=== PATIENT | female | born 1960 | race Caucasian/White ===

== ENCOUNTER 2017-01-20 08:04 | Emergency (ER) | payer BC ==
--- NOTE | 2017-01-20 08:51 | ED ---
General Adult HPI - General Chief complaint: Dental/Oral Stated complaint: DENTAL PAIN AND SWELLING Time Seen by Provider: 01/20/17 08:10 Source: patient, RN notes reviewed Mode of arrival: ambulatory Limitations: no limitations - History of Present Illness Initial comments: Patient 56-year-old female who presents emergency room today with chief complaint of increased dental pain over the last 3 days. Patient does admit to some discomfort to tooth #31. Denies any drainage or discharge. Does admit some increased sensitivity. States that she has not taken anything for the pain. She denies any other complaints or associated symptoms. Patient denies any recent fever, chills, shortness of breath, chest pain, back pain, abdominal pain, nausea or vomiting, numbness or tingling, dysuria or hematuria, constipation or diarrhea, headaches or visual changes, or any other complaints. - Related Data Home Medications Medication Instructions Recorded Confirmed Aspirin 81 mg PO DAILY 09/20/13 04/21/15 Hydrochlorothiazide [Hydrodiuril] 12.5 mg PO DAILY 09/20/13 04/21/15 Lisinopril [Zestril] 20 mg PO BID 09/20/13 04/21/15 metFORMIN HCL [Glucophage] 1,000 mg PO BID 09/20/13 04/21/15 Vitamin B Complex 1 each PO DAILY 04/10/14 04/21/15 Omeprazole [PriLOSEC] 20 mg PO AC-BRKFST 04/13/15 04/21/15 Previous Rx's Medication Instructions Recorded Ibuprofen [Motrin] 600 mg PO Q6HR PRN #30 day 01/20/17 Penicillin V Potassium [Pen Vee K] 500 mg PO QID 10 Days 01/20/17 Allergies Allergy/AdvReac Type Severity Reaction Status Date / Time No Known Allergies Allergy Verified 01/20/17 08:09 Review of Systems ROS Statement: Those systems with pertinent positive or pertinent negative responses have been documented in the HPI. ROS Other: All systems not noted in ROS Statement are negative. Past Medical History Past Medical History: Diabetes Mellitus, GERD/Reflux, Hypertension Additional Past Medical History / Comment(s): torin Ravi, HX OF FOOD "GETTING STUCK" History of Any Multi-Drug Resistant Organisms: None Reported Additional Past Surgical History / Comment(s): D&C, colonoscopy, EGD Past Anesthesia/Blood Transfusion Reactions: No Reported Reaction Past Psychological History: No Psychological Hx Reported Smoking Status: Never smoker Past Alcohol Use History: None Reported Past Drug Use History: None Reported - Past Family History Father Family Medical History: Cancer, Deep Vein Thrombosis (DVT) Additional Family Medical History / Comment(s): COLON General Exam - General Exam Comments Initial Comments: General: The patient is awake and alert, in no distress, and does not appear acutely ill. Eye: Pupils are equal, round and reactive to light, extra-ocular movements are intact. No nystagmus. There is normal conjunctiva bilaterally. No signs of icterus. Ears, nose, mouth and throat: There are moist mucous membranes and no oral lesions. Tender on palpation over tooth #31. No sign of abscess. Uvula midline. Patient swallows without any difficulty. Neck: The neck is supple, there is no tenderness or JVD. Cardiovascular: There is a regular rate and rhythm. No murmur, rub or gallop is appreciated. Respiratory: Lungs are clear to auscultation, respirations are non-labored, breath sounds are equal. No wheezes, stridor, rales, or rhonchi. Musculoskeletal: Normal ROM, no tenderness. Strength 5/5. Sensation intact. Pulses equal bilaterally 2+. Neurological: A&O x 3. CN II-XII intact, There are no obvious motor or sensory deficits. Coordination appears grossly intact. Speech is normal. Skin: Skin is warm and dry and no rashes or lesions are noted. Psychiatric: Cooperative, appropriate mood & affect, normal judgment. Limitations: no limitations Course Vital Signs 01/20/17 08:06 Temperature 97.0 F L Pulse Rate 90 Respiratory 116 H Rate Blood Pressure 136/72 O2 Sat by Pulse 99 Oximetry Medical Decision Making - Medical Decision Making Patient will be started on some cover for infection along with anti- inflammatories for pain. Advised following up with a dentist over the next 2-5 days. Advised return here to the emergency room if any symptoms increase or worsen or for any other concerns. Disposition Clinical Impression: Dental implant pain Disposition: HOME SELF-CARE Condition: Good Instructions: Toothache (ED) Additional Instructions: Please use medication as discussed. Please follow-up with dentist/family doctor in the next 2 days of symptoms have not improved. Please return to emergency room if the symptoms increase or worsen or for any other concerns. Prescriptions: Ibuprofen [Motrin] 600 mg PO Q6HR PRN #30 day PRN Reason: Pain Penicillin V Potassium [Pen Vee K] 500 mg PO QID 10 Days Referrals: Ron Vieira DO [Primary Care Provider] - 1-2 days Time of Disposition: 08:50
[2017-01-20 08:59] VITALS: BP 135/75; PULSE 88; RESP 16; TEMP 97.8
== END 2017-01-20 09:04 | disposition home or self-care (01) ==
LOC: EC 08:04
DX: K08.89 Other specified disorders of teeth and supporting structures (principal); E11.9 Type 2 diabetes mellitus without complications; K21.9 Gastro-esophageal reflux disease without esophagitis; I10 Essential (primary) hypertension; Z79.82 Long term (current) use of aspirin; Z79.84 Long term (current) use of oral hypoglycemic drugs; Z79.899 Other long term (current) drug therapy
CPT/HCPCS: 99282

== ENCOUNTER 2020-07-15 22:07 | Emergency (ER) | payer BC ==
[2020-07-15 22:13] VITALS: BP 172/74; PULSE 85; RESP 18; TEMP 97.9
[2020-07-15] MEDS ORDERED: dexAMETHasone 4 MG TAB PO STA (22:52)
[2020-07-15] MEDS ORDERED: FAMOTIDINE 20 MG TAB PO STA (22:52)
[2020-07-15] MEDS ORDERED: diphenhydrAMINE 50 MG CAP PO STA (22:52)
--- NOTE | 2020-07-15 23:21 | ED ---
Allergic Reaction HPI - General Chief complaint: Allergic Reaction Stated complaint: Possible Allergic Reaction Time Seen by Provider: 07/15/20 22:27 Source: patient, RN notes reviewed, old records reviewed Mode of arrival: ambulatory Limitations: no limitations - History of Present Illness Initial Comments: This is a 51-year-old female DF for evaluation. Patient Dese for facial swelling. Began while after dinner and is never resolved. Patient denies any swelling or shortness of breath. Patient does admit to taking lisinopril. No prior history of similar reaction MD Complaint: allergic reaction, other (Medication reaction lisinopril likely) -: minutes(s) Exposure: unknown Symptoms: orolingual swelling (Left lip) Severity: moderate Treatment Prior to Arrival: none Previous Allergy History: none - Related Data Home Medications Medication Instructions Recorded Confirmed Aspirin 81 mg PO DAILY 09/20/13 04/21/15 hydroCHLOROthiazide [Hydrodiuril] 12.5 mg PO DAILY 09/20/13 04/21/15 lisinopriL [Zestril] 20 mg PO BID 09/20/13 04/21/15 metFORMIN HCL [Glucophage] 1,000 mg PO BID 09/20/13 04/21/15 Vitamin B Complex 1 each PO DAILY 04/10/14 04/21/15 Omeprazole [PriLOSEC] 20 mg PO AC-BRKFST 04/13/15 04/21/15 Previous Rx's Medication Instructions Recorded Ibuprofen [Motrin] 600 mg PO Q6HR PRN #30 day 01/20/17 Penicillin V Potassium [Pen Vee K] 500 mg PO QID 10 Days day 01/20/17 Famotidine [Pepcid] 20 mg PO BID #28 tablet 07/15/20 diphenhydrAMINE [Benadryl] 50 mg PO QID PRN #20 capsule 07/15/20 predniSONE 50 mg PO DAILY #5 tab 07/15/20 Allergies Allergy/AdvReac Type Severity Reaction Status Date / Time No Known Allergies Allergy Verified 07/15/20 22:13 Review of Systems ROS Statement: Those systems with pertinent positive or pertinent negative responses have been documented in the HPI. ROS Other: All systems not noted in ROS Statement are negative. Past Medical History Past Medical History: Diabetes Mellitus, GERD/Reflux, Hypertension Additional Past Medical History / Comment(s): torin Ravi, HX OF FOOD "GETTING STUCK" History of Any Multi-Drug Resistant Organisms: None Reported Additional Past Surgical History / Comment(s): D&C, colonoscopy, EGD Past Anesthesia/Blood Transfusion Reactions: No Reported Reaction Past Psychological History: No Psychological Hx Reported Smoking Status: Never smoker Past Alcohol Use History: None Reported Past Drug Use History: None Reported - Past Family History Father Family Medical History: Cancer, Deep Vein Thrombosis (DVT) Additional Family Medical History / Comment(s): COLON General Exam Limitations: no limitations General appearance: alert, in no apparent distress Head exam: Present: atraumatic, normocephalic, normal inspection Eye exam: Present: normal appearance, PERRL, EOMI, other (Left lip swollen, no oral swelling no stridor). Absent: scleral icterus, conjunctival injection, periorbital swelling ENT exam: Present: normal exam, mucous membranes moist Neck exam: Present: normal inspection. Absent: tenderness, meningismus, lymphadenopathy Respiratory exam: Present: normal lung sounds bilaterally. Absent: respiratory distress, wheezes, rales, rhonchi, stridor Cardiovascular Exam: Present: regular rate, normal rhythm, normal heart sounds. Absent: systolic murmur, diastolic murmur, rubs, gallop, clicks GI/Abdominal exam: Present: soft, normal bowel sounds. Absent: distended, tenderness, guarding, rebound, rigid Extremities exam: Present: normal inspection, full ROM, normal capillary refill. Absent: tenderness, pedal edema, joint swelling, calf tenderness Back exam: Present: normal inspection Neurological exam: Present: alert, oriented X3, CN II-XII intact Psychiatric exam: Present: normal affect, normal mood Skin exam: Present: warm, dry, intact, normal color. Absent: rash Course Vital Signs 07/15/20 22:09 Temperature 97.9 F Pulse Rate 85 Respiratory 18 Rate Blood Pressure 172/74 O2 Sat by Pulse 98 Oximetry - Reevaluation(s) Reevaluation #1: Medical record is reviewed Patient has improved symptoms here in the ER Patient feels better Patient family informed results questions are answered Patient feels good for discharge Medical Decision Making - Medical Decision Making 51 female on lisinopril lip swelling, unilateral lip swelling, the symptoms are not exacerbated here in the ER she did watch, patient can be discharged home Disposition Clinical Impression: Angioedema, Allergic reaction Disposition: HOME SELF-CARE Condition: Good Instructions (If sedation given, give patient instructions): Angioedema (ED) Additional Instructions: cancel Lisinoprill Prescriptions: diphenhydrAMINE [Benadryl] 50 mg PO QID PRN #20 capsule PRN Reason: itching/rash Famotidine [Pepcid] 20 mg PO BID #28 tablet predniSONE 50 mg PO DAILY #5 tab Is patient prescribed a controlled substance at d/c from ED?: No Referrals: Ron Vieira DO [Primary Care Provider] - 1-2 days
== END 2020-07-15 23:55 | disposition home or self-care (01) ==
LOC: EC 22:07
DX: T78.3XXA Angioneurotic edema, initial encounter (principal); E11.9 Type 2 diabetes mellitus without complications; I10 Essential (primary) hypertension; K21.9 Gastro-esophageal reflux disease without esophagitis; Z79.899 Other long term (current) drug therapy; Z79.82 Long term (current) use of aspirin; Z79.84 Long term (current) use of oral hypoglycemic drugs
CPT/HCPCS: 99283; J8540

== ENCOUNTER 2020-10-13 18:49 | Emergency (ER) | payer BC ==
[2020-10-13] MEDS ORDERED: diphenhydrAMINE 50 MG/ML 1 ML VIAL IVP STA (19:47)
[2020-10-13] MEDS ORDERED: FAMOTIDINE 20 MG/2 ML VIAL IV STA (19:47)
[2020-10-13] MEDS ORDERED: methylPREDNISolone SOD SUCCI 125 MG/2 ML VIAL IV STA (19:48)
--- NOTE | 2020-10-13 20:46 | ED ---
General Adult HPI - General Chief complaint: Dental/Oral Stated complaint: Lip/throat swelling/blockage? Time Seen by Provider: 10/13/20 19:28 Source: patient Mode of arrival: ambulatory Limitations: no limitations - History of Present Illness Initial comments: 59-year-old female patient presents to the emergency department today for evaluation of lip swelling. States that couple hours ago she started having swelling to the left lower lip. States she also feels like there is a lump in her which makes it difficult to swallow. She denies any rash or itching. Denies any difficulty breathing. States she did have similar symptoms a little over a month ago and was taken off her lisinopril. She denies any new exposures. Denies any insect bite or sting. Patient denies any recent rash, fever, chills, cough, chest pain, abdominal pain, nausea, vomiting, diarrhea, constipation, back pain, numbness, tingling, dizziness, weakness, hematuria, dysuria, urinary urgency, urinary frequency, headache, visual changes, or any other complaints. - Related Data Home Medications Medication Instructions Recorded Confirmed Aspirin 81 mg PO DAILY 09/20/13 04/21/15 hydroCHLOROthiazide [Hydrodiuril] 12.5 mg PO DAILY 09/20/13 04/21/15 lisinopriL [Zestril] 20 mg PO BID 09/20/13 04/21/15 metFORMIN HCL [Glucophage] 1,000 mg PO BID 09/20/13 04/21/15 Vitamin B Complex 1 each PO DAILY 04/10/14 04/21/15 Omeprazole [PriLOSEC] 20 mg PO AC-BRKFST 04/13/15 04/21/15 Previous Rx's Medication Instructions Recorded Ibuprofen [Motrin] 600 mg PO Q6HR PRN #30 day 01/20/17 Penicillin V Potassium [Pen Vee K] 500 mg PO QID 10 Days day 01/20/17 Famotidine [Pepcid] 20 mg PO BID #28 tablet 07/15/20 diphenhydrAMINE [Benadryl] 50 mg PO QID PRN #20 capsule 07/15/20 predniSONE 50 mg PO DAILY #5 tab 07/15/20 Famotidine [Pepcid] 20 mg PO DAILY #3 tablet 10/13/20 predniSONE 50 mg PO DAILY #3 tab 10/13/20 Allergies Allergy/AdvReac Type Severity Reaction Status Date / Time lisinopril Allergy Swelling Verified 10/13/20 18:57 Review of Systems ROS Statement: Those systems with pertinent positive or pertinent negative responses have been documented in the HPI. ROS Other: All systems not noted in ROS Statement are negative. Past Medical History Past Medical History: Diabetes Mellitus, GERD/Reflux, Hypertension Additional Past Medical History / Comment(s): torin Ravi, HX OF FOOD "GETTING STUCK" History of Any Multi-Drug Resistant Organisms: None Reported Additional Past Surgical History / Comment(s): D&C, colonoscopy, EGD Past Anesthesia/Blood Transfusion Reactions: No Reported Reaction Past Psychological History: No Psychological Hx Reported Smoking Status: Never smoker Past Alcohol Use History: None Reported Past Drug Use History: None Reported - Past Family History Father Family Medical History: Cancer, Deep Vein Thrombosis (DVT) Additional Family Medical History / Comment(s): COLON General Exam Limitations: no limitations General appearance: alert, in no apparent distress, other (Physical well- developed, well-nourished adult female patient in no acute distress. Vital signs upon presentation temperature 98.4F, pulse 79, respirations 18, blood pressure 146/70, pulse ox 98% on room air.) Respiratory exam: Present: normal lung sounds bilaterally. Absent: respiratory distress, wheezes, rales, rhonchi, stridor Cardiovascular Exam: Present: regular rate, normal rhythm, normal heart sounds. Absent: systolic murmur, diastolic murmur, rubs, gallop, clicks GI/Abdominal exam: Present: soft, normal bowel sounds. Absent: distended, tenderness, guarding, rebound, rigid Neurological exam: Present: alert, oriented X3, CN II-XII intact Psychiatric exam: Present: normal affect, normal mood Skin exam: Present: warm, dry, intact, normal color. Absent: rash Course Vital Signs 10/13/20 10/13/20 18:57 21:28 Temperature 98.4 F 98.0 F Pulse Rate 79 69 Respiratory 18 16 Rate Blood Pressure 146/70 121/65 O2 Sat by Pulse 98 98 Oximetry Medical Decision Making - Medical Decision Making 59-year-old female patient presents to the emergency department today for evaluation of left lower lip swelling and feeling of a lump in her throat. Physical examination did reveal some left lower lip swelling. No tongue or throat swelling on exam. No lymphadenopathy. We did start an IV, she was given Pepcid, site Medrol, Benadryl. Upon reevaluation she is resting comfortably states her symptoms are improved. She is tolerating oral intake. Having no difficulty breathing. We will discharge her 3 deeper structure for Pepcid and prednisone. She is instructed to follow-up the primary care physician for recheck in 1-2 days. Return parameters were discussed in detail. She verbalizes understanding and agrees with this plan. My attending is Dr. Archibald. Disposition Clinical Impression: Facial swelling Disposition: HOME SELF-CARE Condition: Good Instructions (If sedation given, give patient instructions): Angioedema (ED) Additional Instructions: Take medications as directed. Follow-up through primary care physician for recheck in 1-2 days. Return for any new, worsening, or concerning symptoms. Prescriptions: Famotidine [Pepcid] 20 mg PO DAILY #3 tablet predniSONE 50 mg PO DAILY #3 tab Is patient prescribed a controlled substance at d/c from ED?: No Referrals: Ron Vieira DO [Primary Care Provider] - 1-2 days Time of Disposition: 21:17
[2020-10-13 21:30] VITALS: BP 121/65; PULSE 69; RESP 16; TEMP 98
== END 2020-10-13 21:30 | disposition home or self-care (01) ==
LOC: EC 18:49
DX: R22.0 Localized swelling, mass and lump, head (principal); E11.9 Type 2 diabetes mellitus without complications; K21.9 Gastro-esophageal reflux disease without esophagitis; I10 Essential (primary) hypertension; Z79.84 Long term (current) use of oral hypoglycemic drugs
CPT/HCPCS: 99282; 96374; 96375 ×2; J1200; J2930

== ENCOUNTER 2021-07-30 07:33 | Emergency (ER) | payer BC ==
[2021-07-30 07:41] VITALS: RESP 18; TEMP 98.1
[2021-07-30] MEDS ORDERED: SODIUM CHLORIDE 0.9% 1,000 ML IV STA (08:06)
[2021-07-30] MEDS ORDERED: ONDANSETRON 4 MG/2 ML VIAL IVP STA (08:06)
--- NOTE | 2021-07-30 08:10 | ED ---
Nausea/Vomiting/Diarrhea HPI - General Chief complaint: Nausea/Vomiting/Diarrhea Stated complaint: NVD Time Seen by Provider: 07/30/21 07:43 Source: patient Mode of arrival: ambulatory Limitations: no limitations - History of Present Illness Initial comments: 60 year-old female patient presents to the emergency department for evaluation for vomiting and diarrhea. Patient states symptoms started yesterday afternoon and persisted throughout the night. She developed watery diarrhea this morning. Denies fever or chills. Denies any hematochezia or melena. Denies abdominal pain. Reports an odd tingling/pressure in her right lower abdomen. Denies any previous abdominal surgeries. Denies sick contacts or recent travel. Patient denies any recent rash, cough, shortness of breath, chest pain, back pain, numbness, tingling, dizziness, weakness, hematuria, dysuria, urinary urgency, urinary frequency, headache, visual changes, or any other complaints. - Related Data Home Medications Medication Instructions Recorded Confirmed Aspirin 81 mg PO DAILY 09/20/13 04/21/15 hydroCHLOROthiazide [Hydrodiuril] 12.5 mg PO DAILY 09/20/13 04/21/15 lisinopriL [Zestril] 20 mg PO BID 09/20/13 04/21/15 metFORMIN HCL [Glucophage] 1,000 mg PO BID 09/20/13 04/21/15 Vitamin B Complex 1 each PO DAILY 04/10/14 04/21/15 Omeprazole [PriLOSEC] 20 mg PO AC-BRKFST 04/13/15 04/21/15 Previous Rx's Medication Instructions Recorded Ibuprofen [Motrin] 600 mg PO Q6HR PRN #30 day 01/20/17 Penicillin V Potassium [Pen Vee K] 500 mg PO QID 10 Days day 01/20/17 Famotidine [Pepcid] 20 mg PO BID #28 tablet 07/15/20 diphenhydrAMINE [Benadryl] 50 mg PO QID PRN #20 capsule 07/15/20 predniSONE 50 mg PO DAILY #5 tab 07/15/20 Famotidine [Pepcid] 20 mg PO DAILY #3 tablet 10/13/20 predniSONE 50 mg PO DAILY #3 tab 10/13/20 Dicyclomine [Bentyl] 20 mg PO QID #12 tablet 03/12/22 Ondansetron [Zofran ODT] 4 mg PO Q8HR PRN #10 tab 07/30/21 Allergies Allergy/AdvReac Type Severity Reaction Status Date / Time lisinopril Allergy Swelling Verified 07/30/21 07:41 Review of Systems ROS Statement: Those systems with pertinent positive or pertinent negative responses have been documented in the HPI. ROS Other: All systems not noted in ROS Statement are negative. Past Medical History Past Medical History: Diabetes Mellitus, GERD/Reflux, Hypertension Additional Past Medical History / Comment(s): torin Ravi, HX OF FOOD "GETTING STUCK" History of Any Multi-Drug Resistant Organisms: None Reported Additional Past Surgical History / Comment(s): D&C, colonoscopy, EGD Past Anesthesia/Blood Transfusion Reactions: No Reported Reaction Past Psychological History: No Psychological Hx Reported Smoking Status: Never smoker Past Alcohol Use History: None Reported Past Drug Use History: None Reported - Past Family History Father Family Medical History: Cancer, Deep Vein Thrombosis (DVT) Additional Family Medical History / Comment(s): COLON General Exam Limitations: no limitations General appearance: alert, in no apparent distress, other (This is a well- developed, well-nourished adult female in no acute distress.) ENT exam: Present: normal exam, normal oropharynx, mucous membranes moist Respiratory exam: Present: normal lung sounds bilaterally. Absent: respiratory distress, wheezes, rales, rhonchi, stridor Cardiovascular Exam: Present: normal rhythm, tachycardia, normal heart sounds. Absent: systolic murmur, diastolic murmur, rubs, gallop, clicks GI/Abdominal exam: Present: soft, normal bowel sounds. Absent: distended, tenderness, guarding, rebound, rigid Neurological exam: Present: alert, oriented X3, CN II-XII intact Psychiatric exam: Present: normal affect, normal mood Skin exam: Present: warm, dry, intact, normal color. Absent: rash Course Vital Signs 07/30/21 07:39 Temperature 98.1 F Pulse Rate 110 H Respiratory 18 Rate Blood Pressure 130/69 O2 Sat by Pulse 97 Oximetry Medical Decision Making - Medical Decision Making 60-year-old female patient presented for evaluation of vomiting and diarrhea since last night. Physical examination revealed soft nontender abdomen. IV was inserted, and she was given Zofran and normal saline. Labs were obtained and revealed evidence for dehydration. Mildly elevated liver enzymes. Upon reevaluation she is resting comfortably in bed tolerating water. No further episodes of vomiting here. States she is feeling better. She will be discharge d home with prescription for Bentyl and Zofran. She is instructed to start with clear liquid diet and advance as tolerated. She is instructed to follow-up with primary care to have her liver enzymes rechecked. Return parameters were discussed in detail. She verbalizes understanding and agrees with this plan. My attending is Dr. Ireland. - Lab Data Result diagrams: 07/30/21 09:00 07/30/21 09:00 Lab Results 07/30/21 07/30/21 07/30/21 Range/Units 09:00 09:00 09:04 WBC 8.5 (3.8-10.6) k/uL RBC 5.93 H (3.80-5.40) m/uL Hgb 16.0 (11.4-16.0) gm/dL Hct 48.7 H (34.0-46.0) % MCV 82.1 (80.0-100.0) fL MCH 27.0 (25.0-35.0) pg MCHC 32.9 (31.0-37.0) g/dL RDW 13.9 (11.5-15.5) % Plt Count 384 (150-450) k/uL MPV 7.1 Neutrophils % 89 % Lymphocytes % 7 % Monocytes % 2 % Eosinophils % 2 % Basophils % 0 % Neutrophils # 7.6 (1.3-7.7) k/uL Lymphocytes # 0.6 L (1.0-4.8) k/uL Monocytes # 0.2 (0-1.0) k/uL Eosinophils # 0.1 (0-0.7) k/uL Basophils # 0.0 (0-0.2) k/uL Sodium 135 L (137-145) mmol/L Potassium 4.0 (3.5-5.1) mmol/L Chloride 102 (98-107) mmol/L Carbon Dioxide 19 L (22-30) mmol/L Anion Gap 14 mmol/L BUN 21 H (7-17) mg/dL Creatinine 0.58 (0.52-1.04) mg/dL Est GFR (CKD-EPI)AfAm >90 (>60 ml/min/1.73 sqM) Est GFR (CKD-EPI)NonAf >90 (>60 ml/min/1.73 sqM) Glucose 150 H (74-99) mg/dL Calcium 9.8 (8.4-10.2) mg/dL Magnesium 2.0 (1.6-2.3) mg/dL Total Bilirubin 1.0 (0.2-1.3) mg/dL AST 95 H (14-36) U/L ALT 67 H (4-34) U/L Alkaline Phosphatase 74 (38-126) U/L Total Protein 8.8 H (6.3-8.2) g/dL Albumin 5.1 H (3.5-5.0) g/dL Lipase 200 (23-300) U/L Coronavirus (PCR) Not Detected (Not Detectd) Disposition Clinical Impression: Vomiting and diarrhea Disposition: HOME SELF-CARE Condition: Good Instructions (If sedation given, give patient instructions): Acute Nausea and Vomiting (ED), Acute Diarrhea (ED) Additional Instructions: That with clear liquid diet and advance as tolerated. Take medications as directed for symptom relief. Follow-up with your primary care physician for recheck in 1-2 days. Have liver enzymes rechecked as soon as possible. Return to the emergency department for any new, worsening, or concerning symptoms. Prescriptions: Dicyclomine [Bentyl] 20 mg PO QID #12 tablet Ondansetron [Zofran ODT] 4 mg PO Q8HR PRN #10 tab PRN Reason: Nausea Is patient prescribed a controlled substance at d/c from ED?: No Referrals: Pedro Solitario MD [STAFF PHYSICIAN] - 1-2 days Memo Godinez DO [STAFF PHYSICIAN] - 1-2 days Christina Rm PAC [PHYSIC[employer] ATTORNEY] - 1-2 days Time of Disposition: 10:44
[2021-07-30 09:21] LABS: Basophils % (A) 0 %; Eosinophils # (A) 0.1 k/uL (0-0.7); Eosinophils % (A) 2 %; HCT 48.7 % (34.0-46.0); Lymphocytes # (A) 0.6 k/uL (1.0-4.8); Lymphocytes % (A) 7 %; MCHC 32.9 g/dL (31.0-37.0); MCV 82.1 fL (80.0-100.0); Mean Platelet Volume 7.1; Monocytes # (A) 0.2 k/uL (0-1.0); Monocytes % (A) 2 %; Neutrophils # (A) 7.6 k/uL (1.3-7.7); Neutrophils % (A) 89 %; Platelet Count 384 k/uL (150-450); RBC 5.93 m/uL (3.80-5.40); RDW 13.9 % (11.5-15.5); WBC 8.5 k/uL (3.8-10.6)
[2021-07-30 09:28] LABS: ALT 67 U/L (4-34); AST 95 U/L (14-36); African American GFR (CKD) >90 (>60 ml/min/1.73 sqM); Albumin 5.1 g/dL (3.5-5.0); Alkaline Phosphatase 74 U/L (38-126); Anion Gap 14 mmol/L; Blood Urea Nitrogen 21 mg/dL (7-17); Calcium 9.8 mg/dL (8.4-10.2); Carbon Dioxide 19 mmol/L (22-30); Chloride 102 mmol/L (98-107); Glucose 150 mg/dL (74-99); Lipase 200 U/L (23-300); Non-African American GFR(CKD) >90 (>60 ml/min/1.73 sqM); Sodium 135 mmol/L (137-145); Total Protein 8.8 g/dL (6.3-8.2)
[2021-07-30] MEDS ORDERED: ACET/COD 300 MG/30 MG STARTER PACK 6 TAB BTL PO STA (10:32)
[2021-07-30] MEDS ORDERED: diphenhydrAMINE 50 MG/ML 1 ML VIAL IVP STA (10:33)
[2021-07-30] MEDS ORDERED: HYDROmorphone 1 MG/ML 1 ML SYRINGE IVP STA (10:33)
[2021-07-30] MEDS ORDERED: DICYCLOMINE 20 MG TAB PO STA (10:42)
[2021-07-30 11:36] VITALS: BP 135/78; PULSE 96
== END 2021-07-30 11:35 | disposition home or self-care (01) ==
LOC: EC 07:33
DX: R11.2 Nausea with vomiting, unspecified (principal); R19.7 Diarrhea, unspecified; R74.8 Abnormal levels of other serum enzymes; I10 Essential (primary) hypertension; E11.9 Type 2 diabetes mellitus without complications; Z88.8 Allergy status to other drugs, medicaments and biological substances; Z79.899 Other long term (current) drug therapy; Z20.822 Contact with and (suspected) exposure to COVID-19; Z79.84 Long term (current) use of oral hypoglycemic drugs
CPT/HCPCS: 36415; 80053; 83690; 83735; 85025; 87635; 99284; 96374; 96361; J2405

== ENCOUNTER → 2021-12-23 | Outpatient (CLI) | payer BC ==
--- NOTE | 2022-01-02 08:30 | MM ---
Reason for Exam: Screening (asymptomatic). Last mammogram was performed 1 year(s) and 4 month(s) ago. Patient History: Menarche at age 14. Patient has no children. Postmenopausal. Risk Values: Zenaida 5 year model risk: 1.6%. NCI Lifetime model risk: 8.1%. Tissue Density: There are scattered fibroglandular densities. Findings: Analyzed By CAD. There is no suspicious group of microcalcifications or new suspicious mass in either breast. Overall Assessment: Negative, BI-RAD 1 Management: Screening Mammogram of both breasts in 1 year. 1. Patient should continue monthly self breast exams. 2. A clinical breast exam by your physician is recommended on an annual basis. 3. This exam should not preclude additional follow-up of suspicious palpable abnormalities. Electronically signed and approved by: Marcial Peck M.D. Radiologist
== END | disposition home or self-care (01) ==
LOC: RADMAMWWP 16:23
PROVIDERS: ATTEND Family Medicine
DX: Z12.31 Encounter for screening mammogram for malignant neoplasm of breast (principal); Z78.0 Asymptomatic menopausal state
CPT/HCPCS: 77063; 77067

== ENCOUNTER → 2022-02-08 | Outpatient (CLI) | payer BC ==
--- NOTE | 2022-02-08 08:01 | US ---
EXAMINATION TYPE: US liver DATE OF EXAM: 02/08/2022 COMPARISON: CT 2013 CLINICAL HISTORY: R89.9 UNSP ABNORMAL FINDING IN SPECIMENS FROM OTH. Elevated liver enzymes TECHNIQUE: Multiple sonographic images of the right upper quadrant are obtained. FINDINGS: EXAM MEASUREMENTS: Liver Length: 18.8 cm Gallbladder Wall: 0.2 cm CBD: 0.3 cm Right Kidney: 10.6 x 5.0 x 5.7 cm Pancreas: visualized portions wnl, tail limited by overlying midline bowel gas Liver: enlarged, increased echogenicity Gallbladder: wnl Evidence for sonographic Quinones's sign: no CBD: visualized portions wnl, limited by overlying bowel gas Right Kidney: wnl IMPRESSION: 1. Hepatomegaly with underlying hepatic steatosis.
== END | disposition home or self-care (01) ==
LOC: RADUSWWP 07:06
PROVIDERS: ATTEND Family Medicine
DX: R16.0 Hepatomegaly, not elsewhere classified (principal); R89.9 Unspecified abnormal finding in specimens from other organs, systems and tissues
CPT/HCPCS: 76705

== ENCOUNTER 2022-05-24 08:01 | Emergency (ER) | payer BC ==
[2022-05-24 08:10] VITALS: BP 165/72; PULSE 72; RESP 18; TEMP 98
[2022-05-24] MEDS ORDERED: MECLIZINE 12.5 MG TAB PO STA (08:33)
--- NOTE | 2022-05-24 08:37 | ED ---
General Adult HPI - General Chief complaint: Dizziness Stated complaint: vertigo Time Seen by Provider: 05/24/22 08:17 Source: patient, family Mode of arrival: ambulatory Limitations: no limitations - History of Present Illness Initial comments: Dictation was produced using [employer] dictation software. please excuse any grammatical, word or spelling errors. Chief Complaint: 61-year-old female presents emergency department for vertigo History of Present Illness: Patient is 61-year-old female she presents emergency department for vertigo. She vertigo upon waking this morning. Patient states that she had about a vertigo attack approximately one year ago purchased take medications however has not in several months. Patient has been exposed her who has been having URI type symptoms. Patient denies any cough, shortness of breath or runny nose. She does feel mild congestion. Patient states that upon waking her vertigo lasted for approximately 1 minute and then improved. She feels much better however when she just her head quickly that her vertigo recurs. Patient denies any numbness and paresthesias to arms or legs. The ROS documented in this emergency department record has been reviewed and confirmed by me. Those systems with pertinent positive or negative responses have been documented in the HPI. All other systems are other negative and/or noncontributory. PHYSICAL EXAM: General Impression: Alert and oriented x3, not in acute distress HEENT: Normocephalic atraumatic, extra-ocular movements intact, pupils equal and reactive to light bilaterally, mucous membranes moist. Cardiovascular: Heart regular rate and rhythm Chest: Able to complete full sentences, no retractions, no tachypnea Abdomen: abdomen soft, non-tender, non-distended, no organomegaly Musculoskeletal: Pulses present and equal in all extremities, no peripheral edema Motor: no focal deficits noted Neurological: CN II-XII grossly intact, no focal motor or sensory deficits noted no nystagmus Skin: Intact with no visualized rashes Psych: Normal affect and mood ED course: 61-year-old female presents emergency department for vertigo. Clinical presentation suggests benign paroxysmal positional. Vital signs upon arrival are within acceptable limits. Nursing notes and chart review was performed Patient given a dose of Antivert. EKG is unremarkable. My EKG interpretation: Ventricular rate 71, sinus rhythm,. 155, QRS 91, QTc 431. No OH prolongation, no QTC prolongation, no ST or T-wave changes noted. . Overall, this EKG is unremarkable Patient reevaluated at bedside at 9:42 AM finally so medical condition. Patient states her symptoms are improved. Patient discharged with prescription for Antivert. - Related Data Home Medications Medication Instructions Recorded Confirmed Aspirin 81 mg PO DAILY 09/20/13 04/21/15 hydroCHLOROthiazide [Hydrodiuril] 12.5 mg PO DAILY 09/20/13 04/21/15 lisinopriL [Zestril] 20 mg PO BID 09/20/13 04/21/15 metFORMIN HCL [Glucophage] 1,000 mg PO BID 09/20/13 04/21/15 Vitamin B Complex 1 each PO DAILY 04/10/14 04/21/15 Omeprazole [PriLOSEC] 20 mg PO AC-[id number] 04/13/15 04/21/15 Previous Rx's Medication Instructions Recorded Ibuprofen [Motrin] 600 mg PO Q6HR PRN #30 day 01/20/17 Penicillin V Potassium [Pen Vee K] 500 mg PO QID 10 Days day 01/20/17 Famotidine [Pepcid] 20 mg PO BID #28 tablet 07/15/20 diphenhydrAMINE [Benadryl] 50 mg PO QID PRN #20 capsule 07/15/20 predniSONE 50 mg PO DAILY #5 tab 07/15/20 Famotidine [Pepcid] 20 mg PO DAILY #3 tablet 10/13/20 predniSONE 50 mg PO DAILY #3 tab 10/13/20 Dicyclomine [Bentyl] 20 mg PO QID #12 tablet 07/30/21 Ondansetron [Zofran ODT] 4 mg PO Q8HR PRN #10 tab 07/30/21 Allergies Allergy/AdvReac Type Severity Reaction Status Date / Time lisinopril Allergy Swelling Verified 05/24/22 08:10 Review of Systems ROS Statement: Those systems with pertinent positive or pertinent negative responses have been documented in the HPI. ROS Other: All systems not noted in ROS Statement are negative. Past Medical History Past Medical History: Diabetes Mellitus, GERD/Reflux, Hypertension Additional Past Medical History / Comment(s): torin Ravi, HX OF FOOD "GETTING STUCK", vertigo . History of Any Multi-Drug Resistant Organisms: None Reported Additional Past Surgical History / Comment(s): D&C, colonoscopy, EGD Past Anesthesia/Blood Transfusion Reactions: No Reported Reaction Past Psychological History: No Psychological Hx Reported Smoking Status: Never smoker Past Alcohol Use History: None Reported Past Drug Use History: None Reported - Past Family History Father Family Medical History: Cancer, Deep Vein Thrombosis (DVT) Additional Family Medical History / Comment(s): COLON General Exam Limitations: no limitations Course Vital Signs 05/24/22 08:04 Temperature 98 F Pulse Rate 72 Respiratory 18 Rate Blood Pressure 165/72 O2 Sat by Pulse 99 Oximetry Disposition Clinical Impression: Vertigo Disposition: HOME SELF-CARE Condition: Good Instructions (If sedation given, give patient instructions): Vertigo (ED) Is patient prescribed a controlled substance at d/c from ED?: No Referrals: Ovidio Araya MD [Primary Care Provider] - 1-2 days Time of Disposition: 09:46
--- NOTE | 2022-05-24 09:53 | ED ---
Disposition Clinical Impression: Vertigo Disposition: HOME SELF-CARE Condition: Good Instructions (If sedation given, give patient instructions): Vertigo (ED) Prescriptions: Meclizine [Antivert] 25 mg PO TID PRN #15 tab PRN Reason: dizziness Is patient prescribed a controlled substance at d/c from ED?: No Referrals: Ovidio Araya MD [Primary Care Provider] - 1-2 days
== END 2022-05-24 09:53 | disposition home or self-care (01) ==
LOC: EC 08:01
DX: R42 Dizziness and giddiness (principal); E11.9 Type 2 diabetes mellitus without complications; K21.9 Gastro-esophageal reflux disease without esophagitis; I10 Essential (primary) hypertension; Z88.8 Allergy status to other drugs, medicaments and biological substances; Z79.82 Long term (current) use of aspirin; Z79.899 Other long term (current) drug therapy; Z79.84 Long term (current) use of oral hypoglycemic drugs
CPT/HCPCS: 93005; 99284

== ENCOUNTER → 2024-09-30 | Outpatient (CLI) | payer BC ==
--- NOTE | 2024-09-30 14:21 | MM ---
Reason for Exam: Screening (asymptomatic). Last mammogram was performed 1 year(s) and 2 month(s) ago. Patient History: Menarche at age 14. Patient has no children. Postmenopausal. Risk Values: Zenaida 5 year model risk: 1.7%. NCI Lifetime model risk: 7.7%. Prior Study Comparison: 09/02/2020 Bilateral MG 3D screening mammo w/cad, [facility]. 12/23/2021 Bilateral MG 3D screening mammo w/cad, [facility]. 07/24/2023 Bilateral MG 3D screening mammo w/cad, [facility]. Tissue Density: There are scattered areas of fibroglandular density. Findings: Analyzed By CAD. There are some small scattered tiny benign-appearing round calculations bilaterally redemonstrated. There is no suspicious group of microcalcifications or new suspicious mass in either breast. Overall Assessment: Benign, BI-RAD 2 Management: Screening Mammogram of both breasts in 1 year. . Patient should continue monthly self-breast exams. A clinical breast exam by your physician is recommended on an annual basis. This exam should not preclude additional follow-up of suspicious palpable abnormalities. Note on Zenaida scores and lifetime risk: 1. A Zenaida score greater than 3% is considered moderate risk. If this is the case, consider specialist referral to assess eligibility for a risk reducing agent. 2. If overall lifetime risk for the development of breast cancer is 20% or higher, the patient may qualify for future screening with alternating mammogram and breast MRI. [facility], , 09/30/2024 2:18 PM. Electronically signed and approved by: Navi Fuller M.D.
== END | disposition home or self-care (01) ==
LOC: RADMAMWWP 13:39
PROVIDERS: ATTEND Family Medicine
DX: Z12.31 Encounter for screening mammogram for malignant neoplasm of breast (principal); R92.323 Mammographic fibroglandular density, bilateral breasts; Z78.0 Asymptomatic menopausal state
CPT/HCPCS: 77063; 77067